=== PATIENT | female | born 1970 ===

== ENCOUNTER → 2022-06-11 08:44 | Outpatient (CLI) | payer OTHER, SELFPAY ==
--- NOTE | ~2022-06-11 | CT_ITS ---
EXAMINATION: CT diagnostic chest wo con DATE: 06/11/2022 09:00 INDICATION: Chronic cough TECHNIQUE: Computed tomography (CT) of the chest was performed without intravenous contrast. Automate d exposure control and iterative reconstruction technique were employed. Exam dose: 707.43 mGy-cm to deep exam DLP. COMPARISON: None FINDINGS: Normal heart size. No thoracic aortic aneurysm. No hilar or mediastinal mass lesion or lymp hadenopathy. No pericardial or pleural effusion. No pulmonary infiltrate or consolidation or suspicious pulmonary mass lesion.. Small sliding hiatal hernia. Normal morphology of the adrenal glands. Status post cholecystectomy. No suspicious osteolytic or osteoblastic lesions are noted. IMPRESSION: No significant abnormality of the thorax Status post cholecystectomy Reviewed, dictated and finalized at [facility]. Reviewed, dictated and finalized at [facility].
== END ==
PROVIDERS: PCP Student in an Organized Health Care Education/Training Program; Visit Provider Student in an Organized Health Care Education/Training Program
DX: R05.9 Cough, unspecified (principal); J41.1 Mucopurulent chronic bronchitis; Z90.49 Acquired absence of other specified parts of digestive tract
CPT/HCPCS: 71250